=== PATIENT | male | born 1985 | race Caucasian/White ===

== ENCOUNTER 2016-03-12 13:10 | Emergency (ER) | payer OTHER | END 2016-03-12 13:20 | disposition left against medical advice (07) | LOC: UCCORT 13:10 | DX: Z53.21 Procedure and treatment not carried out due to patient leaving prior to being seen by health care provider (principal); R09.89 Other specified symptoms and signs involving the circulatory and respiratory systems ==

== ENCOUNTER 2016-03-12 14:52 | Emergency (ER) | payer OTHER ==
[2016-03-12 16:11] VITALS: BP 123/83
--- NOTE | 2016-03-12 16:25 | UC ---
Throat Pain/Nasal Mahad HPI - HPI Summary HPI Summary: 30 year old male with complaints of sinus pain and pressure, nasal congestion and sinus headache for 30 days. He was evaluated 30 days ago and has been using over the counter decongestant that did improve his symptoms for the first few days but he feels he has been getting worse since that time. He reports chills and sweats for the last 2 days. pressure from sinuses in now pushing on his upper teeth. Occasional cough that hurts his throat. Having itchy watery eyes. He denies chest pain or difficulty breathing. - History of Current Complaint Chief Complaint: UCRespiratory Stated Complaint: COUGH,HEADACHE,CONGESTION Time Seen by Provider: 03/12/16 15:54 Hx Obtained From: Patient Onset/Duration: Gradual Onset, Lasting Weeks - 4, Worse Since - for 2 days Severity: Moderate Cough: Nonproductive Associated Signs & Symptoms: Positive: Dysphagia - mild, Sinus Discomfort, Nasal Discharge, Fever - chills and sweats. he has not measured at tempurature. Negative: FB Sensation, Drooling, Wheezing, Hoarseness - Epiglottits Risk Factors Epiglottis Risk Factors: Negative - Allergies/Home Medications Allergies/Adverse Reactions: Allergies Allergy/AdvReac Type Severity Reaction Status Date / Time No Known Allergies Allergy Verified 03/12/16 16:04 Home Medications: Home Medications SUMAtriptan TAB* [Imitrex TAB*] 50 mg PO SEE INSTRUCTIONS PRN 03/12/16 [History Confirmed 03/12/16] PMH/Surg Hx/FS Hx/Imm Hx Previously Healthy: Yes Endocrine History Of: Denies: Diabetes Cardiovascular History Of: Denies: Cardiac Disorders Respiratory History Of: Denies: Asthma Neurological History Of: Reports: Migraine - Surgical History Surgical History: Yes Surgery Procedure, Year, and Place: COLONOSCOPY, GASTROSCOPE - Family History Known Family History: Positive: Cardiac Disease - father, Hypertension - both parents, Diabetes - father - Social History 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 Lives: With Family Alcohol Use: None Substance Use Type: None Smoking Status (MU): Never Smoked Tobacco Household Exposure Type: Cigarettes - Immunization History Most Recent Influenza Vaccination: STATES WITHIN THE LAST 6 MONTHS Review of Systems Constitutional: Chills - and sweats Skin: Negative Eyes: Other - itching ENT: Sore Throat, Nasal Discharge, Other - facial pain and pressure Respiratory: Cough Cardiovascular: Negative Gastrointestinal: Negative Genitourinary: Negative Motor: Negative Neurovascular: Negative Musculoskeletal: Negative Neurological: Headache Psychological: Negative All Other Systems Reviewed And Are Negative: Yes Physical Exam Triage Information Reviewed: Yes Appearance: No Pain Distress, Well-Nourished, Ill-Appearing - mild Vital Signs: Initial Vital Signs Temp 98.7 F 03/12/16 16:06 Pulse 92 03/12/16 16:06 Resp 18 03/12/16 16:06 BP 123/83 03/12/16 16:06 Pulse Ox 98 03/12/16 16:06 Vital Signs Reviewed: Yes Eyes: Positive: Conjunctiva Clear, Other: - PERRLA, Good ocular movements. Negative: Discharge ENT: Positive: Pharyngeal erythema - mild, Nasal congestion, Nasal drainage - white, TMs normal, Other: - Bilateral Maxillary sinus pain and pressure with palpation Neck: Positive: Supple, Nontender, No Lymphadenopathy Respiratory: Positive: Lungs clear, Normal breath sounds Cardiovascular: Positive: RRR, No Murmur Musculoskeletal: Positive: Strength Intact, ROM Intact Neurological: Positive: Alert, Muscle Tone Normal Psychological: Positive: Age Appropriate Behavior - pleasant and cooperative Skin: Negative: rashes, breakdown Throat Pain/Nasal Course/Dx - Differential Dx/Diagnosis Differential Diagnosis/HQI/PQRI: Pharyngitis, Sinusitis, URI Provider Diagnoses: Sinusitis Discharge - Discharge Plan Condition: Stable Disposition: HOME Prescriptions: Amoxicillin/Clavulanate TAB* [Augmentin TAB 875*] 875 mg PO BID #20 tab Fluticasone NASAL SPRAY 50MCG* [Flonase NASAL SPRAY 50MCG*] 1 spray BOTH NARES DAILY #1 btl Patient Education Materials: Sinusitis (ED)
== END 2016-03-12 16:44 | disposition home or self-care (01) ==
LOC: UCCORT 14:52
DX: J32.9 Chronic sinusitis, unspecified (principal); G43.909 Migraine, unspecified, not intractable, without status migrainosus
CPT/HCPCS: 99211; G0463

== ENCOUNTER 2016-07-23 16:03 | Emergency (ER) | payer OTHER ==
[2016-07-23 17:15] VITALS: BP 133/81
[2016-07-23] MEDS ORDERED: Albuterol HFA INHALER* 8 gm MDI INH ONE (17:23)
[2016-07-23] MEDS ORDERED: Amoxicillin CAP* 500 MG PO ONE (17:23)
--- NOTE | 2016-07-23 17:26 | UC ---
Respiratory Complaint HPI - History of Current Complaint Chief Complaint: UCRespiratory Stated Complaint: COUGH Time Seen by Provider: 07/23/16 17:08 Hx Obtained From: Patient Onset/Duration: Gradual Onset - for one week with cough now productive of green / brown sputum, Lasting Weeks - 1, Worse Since - last couple days Severity Initially: Mild Severity Currently: Moderate Character: Cough: Productive Aggravating Factors: Deep Breaths, Recumbent Position - worse at night Alleviating Factors: Nothing Associated Signs And Symptoms: Positive: Dyspnea, Wheezing, URI, Nasal Congestion Related History: Seasonal Allergies - Risk Factors Pulmonary Embolism Risk Factors: Negative Cardiac Risk Factors: Family History Pseudomonas Risk Factors: Negative - Allergies/Home Medications Allergies/Adverse Reactions: Allergies Allergy/AdvReac Type Severity Reaction Status Date / Time No Known Allergies Allergy Verified 07/23/16 17:08 PMH/Surg Hx/FS Hx/Imm Hx Endocrine History Of: Denies: Diabetes Cardiovascular History Of: Denies: Cardiac Disorders Respiratory History Of: Reports: Asthma - As childhood Neurological History Of: Reports: Migraine - Surgical History Surgical History: Yes Surgery Procedure, Year, and Place: COLONOSCOPY, GASTROSCOPE - Family History Known Family History: Positive: Cardiac Disease - father, Hypertension - both parents, Diabetes - father - Social History Occupation: Employed Full-time Lives: With Family Alcohol Use: None Substance Use Type: None Smoking Status (MU): Never Smoked Tobacco Household Exposure Type: Cigarettes - Immunization History Most Recent Influenza Vaccination: NONEU Most Recent Tetanus Shot: UTD Most Recent Pneumonia Vaccination: NONE Review of Systems Constitutional: Fever ENT: Sore Throat, Ear Ache Respiratory: Shortness Of Breath, Cough All Other Systems Reviewed And Are Negative: Yes Physical Exam Triage Information Reviewed: Yes Appearance: No Pain Distress, Well-Nourished, Ill-Appearing Vital Signs: Initial Vital Signs Temp 97.8 F 07/23/16 17:09 Pulse 89 07/23/16 17:09 Resp 18 07/23/16 17:09 BP 133/81 07/23/16 17:09 Pulse Ox 98 07/23/16 17:09 Vital Signs Reviewed: Yes Eyes: Positive: Conjunctiva Inflamed ENT: Positive: Pharyngeal erythema - on the soft palate, TMs normal - AD, TM bulging - , TM red - Neck exam: Normal Respiratory: Positive: Lungs clear Cardiovascular Exam: Normal Abdominal Exam: Normal Musculoskeletal Exam: Normal Neurological Exam: Normal Psychological Exam: Normal Skin Exam: Normal UC Diagnostic Evaluation - Laboratory O2 Sat by Pulse Oximetry: 98 Respiratory Course/Dx - Differential Dx/Diagnosis Differential Diagnosis/HQI/PQRI: Asthma, Lower Resp Infection, Sinusitis Provider Diagnoses: Acute URI. Acute bronchospasm. Acute left supporative otitis media Discharge - Discharge Plan Condition: Stable Disposition: HOME Prescriptions: Amoxicillin (*) [Amoxicillin 875 MG (*)] 875 mg PO BID #20 tab predniSONE TAB* [Deltasone TAB*] 20 mg PO DAILY #18 tab Patient Education Materials: Upper Respiratory Infection (ED), Wheezing (ED), Prednisone (By mouth), Otitis Media (ED), Amoxicillin (By mouth)
== END 2016-07-23 17:40 | disposition home or self-care (01) ==
LOC: UCCORT 16:03
DX: J06.9 Acute upper respiratory infection, unspecified (principal); J98.01 Acute bronchospasm; H66.002 Acute suppurative otitis media without spontaneous rupture of ear drum, left ear; G43.909 Migraine, unspecified, not intractable, without status migrainosus; Z77.22 Contact with and (suspected) exposure to environmental tobacco smoke (acute) (chronic)
CPT/HCPCS: 99212; A9270-GY; G0463

== ENCOUNTER 2016-11-11 09:26 | Emergency (ER) | payer MEDICAID, OTHER ==
[2016-11-11 10:18] VITALS: BP 148/70
--- NOTE | 2016-11-11 10:36 | UC ---
UC General HPI - History of Current Complaint Chief Complaint: UCGeneralIllness Stated Complaint: NAUSEA Time Seen by Provider: 11/11/16 10:24 - Allergy/Home Medications Allergies/Adverse Reactions: Allergies Allergy/AdvReac Type Severity Reaction Status Date / Time No Known Allergies Allergy Verified 11/11/16 10:08 PMH/Surg Hx/FS Hx/Imm Hx - Surgical History Surgical History: Yes Surgery Procedure, Year, and Place: COLONOSCOPY, GASTROSCOPE - Family History Known Family History: Positive: Cardiac Disease - father, Hypertension - both parents, Diabetes - father - Social History Alcohol Use: None Substance Use Type: None Smoking Status (MU): Never Smoked Tobacco Household Exposure Type: Cigarettes - Immunization History Most Recent Influenza Vaccination: 2015 Most Recent Tetanus Shot: UTD Most Recent Pneumonia Vaccination: NONE Physical Exam Vital Signs: Initial Vital Signs Temp 99.3 F 11/11/16 10:09 Pulse 90 11/11/16 10:09 Resp 18 11/11/16 10:09 BP 148/70 11/11/16 10:09 Pulse Ox 98 11/11/16 10:09
[2016-11-11] MEDS ORDERED: Ondansetron ODT TAB* 4 MG PO ONE ×2 (10:42)
[2016-11-11] MEDS ORDERED: Amitriptyline TAB* 50 MG PO ONE ×2 (10:43)
--- NOTE | 2016-11-11 10:46 | UC ---
UC General HPI - HPI Summary HPI Summary: 31 y/o male presents to the urgent care c/o cough, fever/chills, headache since yesterday evening at 1800. Pt reports he went to [facility] ER at 2300 yesterday, they did several blood work and tests and was d/c home w/ Dx of Viral illness. Did not Rx him anything. He had an episode of vomiting yesterday. Today his CROWE is 7/10 with nausea. He has PMHX of Migraine CROWE and he takes Sumatriptan PO 50 mg BID . Pt is drinking well, but has not eating anything this morning. Pt denies SOB,chest pain, diarrhea. Urinary symptoms, abdominal pain. - History of Current Complaint Chief Complaint: UCGeneralIllness Stated Complaint: NAUSEA Time Seen by Provider: 11/11/16 10:24 Hx Obtained From: Patient Onset/Duration: Gradual Onset, Lasting Hours, Still Present Onset Severity: Moderate Current Severity: Moderate Pain Intensity: 7 - Headache Pain Location at: frontal and temporal Character: throbing Associated Signs & Symptoms: Positive: Fever - sunjective at home, Headache, Vomiting - yesterday one episode - Allergy/Home Medications Allergies/Adverse Reactions: Allergies Allergy/AdvReac Type Severity Reaction Status Date / Time No Known Allergies Allergy Verified 11/11/16 10:08 PMH/Surg Hx/FS Hx/Imm Hx Previously Healthy: Yes Neurological History: Migraine Psychological History: Anxiety - Surgical History Surgical History: Yes Surgery Procedure, Year, and Place: COLONOSCOPY, GASTROSCOPE - Family History Known Family History: Positive: Cardiac Disease - father, Hypertension - both parents, Diabetes - father - Social History Alcohol Use: None Substance Use Type: None Smoking Status (MU): Never Smoked Tobacco Household Exposure Type: Cigarettes - Immunization History Most Recent Influenza Vaccination: 2016 Most Recent Tetanus Shot: UTD Most Recent Pneumonia Vaccination: NONE Review of Systems Constitutional: Fever, Chills Skin: Negative Eyes: Negative ENT: Negative Respiratory: Cough - mild productive Cardiovascular: Negative Gastrointestinal: Vomiting - 1 episode yesterday, Nausea Genitourinary: Negative Motor: Negative Neurovascular: Negative Musculoskeletal: Negative Neurological: Headache - migraine Psychological: Negative All Other Systems Reviewed And Are Negative: Yes Physical Exam Triage Information Reviewed: Yes Appearance: Well-Appearing, No Pain Distress, Well-Nourished, Thin Vital Signs: Initial Vital Signs Temp 99.3 F 11/11/16 10:09 Pulse 90 11/11/16 10:09 Resp 18 11/11/16 10:09 BP 148/70 11/11/16 10:09 Pulse Ox 98 11/11/16 10:09 Vital Signs Reviewed: Yes Eye Exam: Normal Eyes: Positive: Conjunctiva Clear - PERRLA, EOMI ENT Exam: Normal ENT: Positive: Normal ENT inspection, Hearing grossly normal, Pharynx normal, TMs normal, Other: - no sinus tenderness Dental Exam: Normal Neck exam: Normal Neck: Positive: Supple, Nontender, No Lymphadenopathy Respiratory Exam: Normal Respiratory: Positive: Chest non-tender, Lungs clear, Normal breath sounds, No respiratory distress Cardiovascular Exam: Normal Cardiovascular: Positive: RRR, No Murmur, Pulses Normal Abdominal Exam: Normal Abdomen Description: Positive: Nontender, No Organomegaly, Soft, Guarding. Negative: CVA Tenderness (R), CVA Tenderness (L) Bowel Sounds: Positive: Present Musculoskeletal Exam: Normal Musculoskeletal: Positive: Strength Intact, ROM Intact, No Edema, Other: - mild tenderness B/L shoulder. no swelling or erythema observed. FROM of shoulders Neurological Exam: Normal Psychological Exam: Normal Skin Exam: Normal Course/Dx - Course Course Of Treatment: . 31 y/o male presents to the urgent care c/o cough, fever /chills, headache since yesterday evening at 1800. Pt reports he went to [facility] ER at 2300 yesterday, they did several blood work and tests and was d/ c home w/ Dx of Viral illness. Did not Rx him anything. He had an episode of vomiting yesterday. Today his CROWE is 7/10 with nausea. He has PMHX of Migraine CROWE and he takes Sumatriptan PO 50 mg BID . Pt is drinking well, but has not eating anything this morning. Pt denies SOB,chest pain, diarrhea. Urinary symptoms, abdominal pain. Hx obtained. PE WNL. Pt presenting with a Migraine CROWE , N/V, and mild productive cough, Lungs Clear B/L. Pt given at the clinic Sumatriptan SQ inj. and Zofran for nausea. However PT had an episode of vomiting after taking Zofran PO. Pt given Compazine 10mg PO to alleviate for vomiting. Pt observed for 20 min and Pt CROWE and N/V improve. Pt Rx Compazine PO for N/V and Tessalon PO tab to alleviate Cough. Pt advised to continue taking the Sumatriptan for Migraine CROWE. Also advised to increase fluid intake with gatorade and eat well and rest. Pt BP mildly elevated today w/o Hx of HTN. Advised to decrease salt in his diet, monitor BP at home if if continues to be elevated to f/u with his PCP. If not improvement of symptoms to return to the urgent care or f/u with his PCP for further evaluation and treatment. Pt understood and agreed and left the clinic anbulating. - Differential Dx - Multi-Symptom Differential Diagnoses: Other - URI, bronchitis. Migraine CROWE, Pharyngitis, Viral illness, common cold. Provider Diagnoses: 1- Acute Migraine Headache. 2- Nausea and vomiting. 3- Common cold. 4- Elevated BP w/o Hx of HTN - Physician Notifications Discussed Patient Care With: Braeden Canales - Dr canales agreed with Pt care and treatment Discharge - Discharge Plan Condition: Stable Disposition: HOME Prescriptions: Benzonatate CAP* [Tessalon 100 MG CAP*] 100 mg PO TID #15 cap Prochlorperazine TAB* [Compazine Tab*] 10 mg PO Q8H PRN #9 tab PRN Reason: Vomiting Patient Education Materials: Migraine Headache (ED), Cold Symptoms (ED), Low Sodium Diet (ED) Referrals: Nel Machuca PA [Primary Care Provider] - 3 Days Additional Instructions: 1- Please continue taking the Sumatriptan alleviate symptoms of migraine Headache. The Compazine to alleviate symptoms of Nausea and vomiting. 2- Take ibuprofen q6-8hrs prn if your develop any fever. 3- Please hydrate yourself well and eat well and rest 4-If symptoms do not improve or worsen please return to the urgent care or f/u with your PCP for further evaluation and treatment. 5- Your BP today is elevated, please decrease salt in your diet, monitor your BP , if it continues to be elevated please f/y with your PCP for further management.
[2016-11-11] MEDS ORDERED: SUMAtriptan TAB* 50 MG PO ONE ×2 (10:47)
[2016-11-11] MEDS ORDERED: SUMAtriptan SQ* 6 MG/0.5 ML VIAL SUBCUT ONE ×2 (10:51)
[2016-11-11] MEDS ORDERED: Prochlorperazine TAB* 10 MG PO ONE ×2 (11:13)
[2016-11-11] MEDS ORDERED: Prochlorperazine TAB* 5 MG ONE ×2 (11:21)
== END 2016-11-11 11:55 | disposition home or self-care (01) ==
LOC: UCCORT 09:26
DX: G43.909 Migraine, unspecified, not intractable, without status migrainosus (principal); F41.9 Anxiety disorder, unspecified; R11.2 Nausea with vomiting, unspecified; J00 Acute nasopharyngitis [common cold]; R03.0 Elevated blood-pressure reading, without diagnosis of hypertension
CPT/HCPCS: 96372; 99212; A9270-GY; G0463; J3030; Q0164

== ENCOUNTER 2017-02-02 17:31 | Emergency (ER) | payer SELFPAY ==
--- NOTE | 2017-02-02 18:00 | UC ---
Back Pain HPI - HPI Summary HPI Summary: 31 YEAR OLD MALE PRESENTS WITH RIGHT UPPER THORACIC MUSCLE SPASM. - History of Current Complaint Stated Complaint: BACK PAIN Time Seen by Provider: 02/02/17 17:59 Onset/Duration: Sudden Onset Timing: Constant Severity Initially: Moderate Severity Currently: Moderate - Allergies/Home Medications Allergies/Adverse Reactions: Allergies Allergy/AdvReac Type Severity Reaction Status Date / Time No Known Allergies Allergy Verified 02/02/17 18:03 PMH/Surg Hx/FS Hx/Imm Hx Previously Healthy: Yes - Surgical History Surgical History: Yes Surgery Procedure, Year, and Place: COLONOSCOPY, GASTROSCOPE - Family History Known Family History: Positive: Cardiac Disease - father, Hypertension - both parents, Diabetes - father - Social History Alcohol Use: None Substance Use Type: None Smoking Status (MU): Never Smoked Tobacco Household Exposure Type: Cigarettes - Immunization History Most Recent Influenza Vaccination: 2015 Most Recent Tetanus Shot: UTD Most Recent Pneumonia Vaccination: NONE Review of Systems Constitutional: Negative Skin: Negative Eyes: Negative ENT: Negative Respiratory: Negative Cardiovascular: Negative Gastrointestinal: Negative Genitourinary: Negative Motor: Negative Neurovascular: Negative Musculoskeletal: Other: - RIGHT UPPER THORACIC MUSCLE SPASM Neurological: Negative Psychological: Negative All Other Systems Reviewed And Are Negative: Yes Physical Exam Triage Information Reviewed: Yes Vital Signs Reviewed: Yes Eye Exam: Normal ENT Exam: Normal Dental Exam: Normal Neck exam: Normal Neck: Positive: 1 Respiratory Exam: Normal Cardiovascular Exam: Normal Abdominal Exam: Normal Musculoskeletal: Positive: Other: - RIGHT UPPER THORACIC MUSCLE SPASM Neurological Exam: Normal Psychological Exam: Normal Skin Exam: Normal Back Pain Course/Dx - Differential Dx/Diagnosis Provider Diagnoses: RIGHT UPPER THORACIC SPASM Discharge - Discharge Plan Condition: Stable Disposition: HOME Prescriptions: Meloxicam(NF) [Mobic(NF)] 7.5 mg PO BID #30 tab Methocarbamol TAB* [Robaxin 500 MG TAB*] 500 mg PO TID PRN #30 tab PRN Reason: Spasms - Back Patient Education Materials: Low Back Strain (ED) Forms: *Work Release Referrals: Nel Machuca PA [Primary Care Provider] - Yair Calabrese [Physical Therapist] -
[2017-02-02 18:02] VITALS: BP 141/93
== END 2017-02-02 18:17 | disposition home or self-care (01) ==
LOC: UCCORT 17:31
DX: M62.830 Muscle spasm of back (principal); Z77.22 Contact with and (suspected) exposure to environmental tobacco smoke (acute) (chronic)
CPT/HCPCS: 99212; G0463

== ENCOUNTER 2017-08-18 07:35 | Emergency (ER) | payer OTHER ==
[2017-08-18 07:53] VITALS: BP 134/90
--- NOTE | 2017-08-18 08:01 | UC ---
Respiratory Complaint HPI - HPI Summary HPI Summary: Patient presents with 5 days progressive congestion settlements chest. Patient with productive Brents cough since yesterday. Patient denies nausea vomiting. Patient with fatigue. Patient reports tactile temperatures. Reports with decreased appetite. Patient does not feel short of breath except for "coughing " Pt is exposed to secondhand smoke at home. With a history of asthma as a child. No recent prednisone or MDI. She has used [id number] cough medicine without relief. Patient on no allergy medication. Reports sick contacts at work. 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 today Patient's medications reviewed this visit - History of Current Complaint Chief Complaint: UCGeneralIllness Stated Complaint: RESPIRATORY Time Seen by Provider: 08/18/17 07:54 Hx Obtained From: Patient Severity Initially: Moderate Pain Intensity: 4 Pain Scale Used: 0-10 Numeric Character: Cough: Productive - Brown sputum - Allergies/Home Medications Allergies/Adverse Reactions: Allergies Allergy/AdvReac Type Severity Reaction Status Date / Time No Known Allergies Allergy Verified 08/18/17 07:52 PMH/Surg Hx/FS Hx/Imm Hx Previously Healthy: Yes Respiratory History: Asthma - Surgical History Surgical History: Yes Surgery Procedure, Year, and Place: COLONOSCOPY, GASTROSCOPE - Family History Known Family History: Positive: Cardiac Disease - father, Hypertension - both parents, Diabetes - father - Social History Occupation: Employed Full-time Lives: With Family Alcohol Use: None Substance Use Type: None Smoking Status (MU): Never Smoked Tobacco Household Exposure Type: Cigarettes - Immunization History Most Recent Influenza Vaccination: 2016 Most Recent Tetanus Shot: UTD Most Recent Pneumonia Vaccination: NONE Review of Systems Constitutional: Fever - Tactile, Fatigue Respiratory: Cough Cardiovascular: Negative All Other Systems Reviewed And Are Negative: Yes Physical Exam - Summary Physical Exam Summary: Vital Signs Reviewed: Yes A+Ox3, no distress Eyes: Conjunctiva Clear, RAJIV. EOM intact and full ENT: Hearing grossly normal TM x 2 clear, turbinates inflammed and boggy + PND mmoist, uvula midline, no exudate, no erythema Neck: Positive: Supple Respiratory: P No respiratory distress, No accessory muscle use + BS throughout scattered wheeze, no rhonci, no retractions Cardiovascular: RRR nl s1, s2 no m/r CBT <2 sec abd soft + BS nt/nd no guarding, no distension Musculoskeletal Exam: GORDON x 4 without difficulty Strength Intact, ROM Intact Neurological: Positive: Alert, + sensation throughout Psychological: Positive: Normal Response To Family Skin: Positive: no rash, no ecchymosis Triage Information Reviewed: Yes Vital Signs: Initial Vital Signs Temp 98.0 F 08/18/17 07:49 Pulse 73 08/18/17 07:49 Resp 16 08/18/17 07:49 BP 134/90 08/18/17 07:49 Pulse Ox 100 08/18/17 07:49 Diagnostic Evaluation - Laboratory O2 Sat by Pulse Oximetry: 100 Respiratory Course/Dx - Course Course Of Treatment: Patient with progressive chest congestion and cough. Patient reports brown sputum. Patient was scattered wheeze. Patient with tactile temperatures and fatigue. Exam vital signs stable. Patient was scattered wheeze and intermittent cough. 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 Will prescribe amoxicillin, albuterol MDI. secretion precaution. Recommend allergy medication. Return precautions. Work note - Differential Dx/Diagnosis Provider Diagnoses: Bronchitis Discharge - Sign-Out/Discharge Documenting (check all that apply): Discharge/Admit/Transfer - Discharge Plan Condition: Stable Disposition: HOME Prescriptions: Albuterol HFA INHALER* [Ventolin HFA Inhaler*] 1 puff INH Q4H PRN #1 mdi PRN Reason: wheeze Amoxicillin 500 mg PO BID #20 capsule Patient Education Materials: Acute Bronchitis (ED) Forms: *Work Release Referrals: Nilsa Jackson MD [Primary Care Provider] - Additional Instructions: -Stay well hydrated, avoid excess caffeine and all alcohol -Take antibiotics exactly as prescribed until gone -Use your albuterol puffer - 2 puffs ever 4-6 hours for the next 2 days - then as needed -it is recommended you take allergy medication such as Claritin, Leonela, Zytrec -These infections are spread by oral secretions. Do not share eating or drinking utensils. Frequent hand washing is important. Clean items that may get your secretions on them such as cell phones, ipads, computer mouse, television remotes. Once you have been on antbiotics for 2 days, change your pillowcase and your toothbrush -Contact your doctor to arrange a follow-up appointment this week. Call your doctor, return here or go to the emergency department with any questions or concerns - Billing Disposition and Condition Condition: STABLE Disposition: Home
== END 2017-08-18 08:14 | disposition home or self-care (01) ==
LOC: UCCORT 07:35
DX: J40 Bronchitis, not specified as acute or chronic (principal); J45.909 Unspecified asthma, uncomplicated; Z77.22 Contact with and (suspected) exposure to environmental tobacco smoke (acute) (chronic); Z77.098 Contact with and (suspected) exposure to other hazardous, chiefly nonmedicinal, chemicals
CPT/HCPCS: 99212; G0463

== ENCOUNTER 2018-07-18 20:29 | Emergency (ER) | payer OTHER ==
[2018-07-18 20:53] VITALS: BP 132/56
--- NOTE | 2018-07-18 21:11 | UC ---
Laceration HPI - HPI Summary HPI Summary: Cut R thumb today while working on a car. It started to bleed but he held tissue to it. Stopped bleeding. Some pain. Denies numbness. - History Of Current Complaint Chief Complaint: UCLaceration Stated Complaint: R THUMB CUT (WC) Time Seen by Provider: 07/18/18 20:58 Hx Obtained From: Patient Mechanism Of Injury: Sharp Trauma Onset/Duration: Sudden Onset Pain Intensity: 5 Pain Scale Used: 0-10 Numeric Aggravating Factors: Nothing - Allergies/Home Medications Allergies/Adverse Reactions: Allergies Allergy/AdvReac Type Severity Reaction Status Date / Time No Known Allergies Allergy Verified 07/18/18 20:53 Home Medications: Home Medications Propranolol HCl 80 mg PO DAILY 07/18/18 [History Confirmed 07/18/18] PMH/Surg Hx/FS Hx/Imm Hx Respiratory History: Asthma - Surgical History Surgical History: Yes Surgery Procedure, Year, and Place: COLONOSCOPY, GASTROSCOPE - Family History Known Family History: Positive: Cardiac Disease - father, Hypertension - both parents, Diabetes - father - Social History Alcohol Use: None Substance Use Type: None Smoking Status (MU): Never Smoked Tobacco Household Exposure Type: Cigarettes - Immunization History Most Recent Influenza Vaccination: 2016 Most Recent Tetanus Shot: 2013 Most Recent Pneumonia Vaccination: NONE Review of Systems All Other Systems Reviewed And Are Negative: Yes Constitutional: Positive: Negative Skin: Negative: Bruising Musculoskeletal: Negative: Decreased ROM Neurological: Negative: Weakness, Paresthesia Physical Exam Triage Information Reviewed: Yes Appearance: Well-Appearing Vital Signs: Initial Vital Signs Temp 99 F 07/18/18 20:49 Pulse 73 07/18/18 20:49 Resp 16 07/18/18 20:49 BP 132/56 07/18/18 20:49 Pulse Ox 99 07/18/18 20:49 Vital Signs Reviewed: Yes Musculoskeletal: Positive: Strength Intact - R thumb, No Edema - R thumb Skin: Positive: Other - Curved approx 1 in. laceration w/ no active bleeding. area cleaned and dermabond glue used Laceration Course/Dx - Course/Dx Course Of Treatment: R thumb curved laceration after working on a car today. NO active bleeding. Area cleaned and derma glue used. Neurovascularly intact. Tetanus vaccine w/in the past 5 yrs per pt. - Differential Dx - Laceration/Wound Differental Diagnoses: Abrasion, Laceration, Suture Removal - Diagnosis Provider Diagnosis: Laceration Discharge - Sign-Out/Discharge Documenting (check all that apply): Patient Departure All imaging exams completed and their final reports reviewed: No Studies - Discharge Plan Condition: Good Disposition: HOME Patient Education Materials: Laceration (ED) Referrals: Nilsa Jackson MD [Primary Care Provider] - Additional Instructions: Please keep area clean and follow up with your primary care if it begins to get red and swollen. - Billing Disposition and Condition Condition: GOOD Disposition: Home
== END 2018-07-18 21:13 | disposition home or self-care (01) ==
LOC: UCCORT 20:29
DX: S61.011A Laceration without foreign body of right thumb without damage to nail, initial encounter (principal); W26.9XXA Contact with unspecified sharp object(s), initial encounter; Y93.H9 Activity, other involving exterior property and land maintenance, building and construction; Y92.014 Private driveway to single-family (private) house as the place of occurrence of the external cause; J45.909 Unspecified asthma, uncomplicated
CPT/HCPCS: 99212; G0463

== ENCOUNTER 2018-11-26 17:48 | Emergency (ER) | payer OTHER ==
[2018-11-26 18:08] VITALS: BP 129/78
[2018-11-26 19:38] LABS: Influenza A Molecular NEGATIVE (Negative); Influenza B Molecular NEGATIVE (Negative)
--- NOTE | 2018-11-26 19:40 | UC ---
FLU HPI - HPI Summary HPI Summary: 33-year-old male presents with onset of fatigue, general malaise, body aches, headache, nasal congestion, runny nose, and an occasionally productive cough the evening. Symptoms associated with some chills but no known fever. Reports some chest discomfort with coughing. Denies ear pain, sore throat, shortness of breath, abdominal pain, nausea, vomiting, or diarrhea. - History of Current Complaint Chief Complaint: UCRespiratory Stated Complaint: COUGH/CONGESTION/FATIGUE Hx Obtained From: Patient Pain Intensity: 0 - Allergy/Home Medications Allergies/Adverse Reactions: Allergies Allergy/AdvReac Type Severity Reaction Status Date / Time No Known Allergies Allergy Verified 11/26/18 18:04 Home Medications: Home Medications Oxybutynin Chloride [Ditropan Xl] 10 mg PO BID 11/26/18 [History Confirmed 11/26] PMH/Surg Hx/FS Hx/Imm Hx Other GI/ History: OAB Neurological History: Migraine - Surgical History Surgical History: Yes Surgery Procedure, Year, and Place: COLONOSCOPY, GASTROSCOPE - Family History Known Family History: Positive: Cardiac Disease - father, Hypertension - both parents, Diabetes - father - Social History Occupation: Employed Full-time Lives: With Family Alcohol Use: None Substance Use Type: None Smoking Status (MU): Never Smoked Tobacco Household Exposure Type: Cigarettes - Immunization History Most Recent Influenza Vaccination: 2016 Most Recent Tetanus Shot: 2013 Most Recent Pneumonia Vaccination: NONE Review of Systems All Other Systems Reviewed And Are Negative: Yes Constitutional: Positive: Chills, Fatigue. Negative: Fever Skin: Negative: Rash Eyes: Negative: Drainage, Eye Redness ENT: Positive: Nasal Discharge, Sinus Congestion, Sinus Pain/Tenderness. Negative: Sore Throat, Ear Ache Respiratory: Positive: Cough. Negative: Shortness Of Breath Cardiovascular: Negative: Palpitations Gastrointestinal: Negative: Abdominal Pain, Vomiting, Diarrhea, Nausea Genitourinary: Positive: Negative Musculoskeletal: Positive: Myalgia Neurological: Positive: Headache Is Patient Immunocompromised?: No Physical Exam - Summary Physical Exam Summary: GENERAL APPEARANCE: Well developed, well nourished, alert and cooperative, and appears to be in no acute distress. EYES: Conjunctiva clear. No drainage. EARS: External auditory canals and tympanic membranes clear, hearing grossly intact. NOSE: Mild-moderate nasal congestion with clear nasal discharge. THROAT: Pharynx normal. No tonsilar inflammation, swelling, exudate, or lesions. Uvula midline. NECK: Neck supple, non-tender without lymphadenopathy. CARDIAC: Normal S1 and S2. No S3, S4 or murmurs. Rhythm is regular. There is no peripheral edema, cyanosis or pallor. Extremities are warm and well perfused. Capillary refill is less than 2 seconds. Peripheral pulses intact. LUNGS: Clear to auscultation without rales, rhonchi, wheezing or diminished breath sounds. Dry, non-productive cough. ABDOMEN: Positive bowel sounds. Soft, nondistended, nontender. No guarding or rebound. No masses or hepatosplenomegally. MUSKULOSKELETAL: ROM intact to all extremities. No joint erythema or tenderness. Normal muscular development. Normal gait. SKIN: Skin normal color, texture and turgor with no lesions or eruptions. Triage Information Reviewed: Yes Vital Signs: Initial Vital Signs Temp 99.3 F 11/26/18 18:02 Pulse 80 11/26/18 18:02 Resp 18 11/26/18 18:02 BP 129/78 11/26/18 18:02 Pulse Ox 97 11/26/18 18:02 Vital Signs Reviewed: Yes Flu Course/Dx - Course Course Of Treatment: 33-year-old male presents with onset of fatigue, general malaise, body aches, headache, nasal congestion, runny nose, and an occasionally productive cough the evening. Symptoms associated with some chills but no known fever. Reports some chest discomfort with coughing. Denies ear pain, sore throat, shortness of breath, abdominal pain, nausea, vomiting, or diarrhea. Afebrile. Vital signs stable. Patient had oxjw-wi-ibcnliam nasal congestion with clear nasal discharge, normal pharynx without tonsillar swelling or exudate, no cervical lymphadenopathy, clear bilateral breath sounds, dry nonproductive cough, and otherwise unremarkable exam. Rapid flu test was negative. Recommending symptomatic treatment for a viral upper respiratory infection. He is to follow- up with his primary care provider in 5-7 days if symptoms are not improving. Anticipatory guidance warning symptoms were reviewed with the patient. Verbalized understanding and agrees with plan of care. - Differential Dx/Diagnosis Differential Diagnosis/HQI/PQRI: Bronchitis, Influenza, Pneumonia, Upper Respiratory Infection Provider Diagnosis: Viral URI with cough Discharge ED - Sign-Out/Discharge Documenting (check all that apply): Patient Departure All imaging exams completed and their final reports reviewed: No Studies - Discharge Plan Condition: Stable Disposition: HOME Prescriptions: Benzonatate CAP* [Tessalon 100 MG CAP*] 100 mg PO TID PRN #[id number] cap PRN Reason: Cough Patient Education Materials: Upper Respiratory Infection (ED) Referrals: Nilsa Jackson MD [Primary Care Provider] - 5 Days Additional Instructions: The rapid flu test performed in the clinic today was negative. Your history and exam are consistent with a viral upper respiratory infection. Viral infections do not respond to antibiotics and are limited to the treatment of symptoms. Viral infections typically run their course in 7-10 days. Drink plenty of fluids to avoid dehydration especially if you are running any fever. Use an [id number] decongestant such as Sudafed according to directions to help with the congestion. Take Tessalon Perles 1 capsule every 8 hours as needed for cough. Take over the counter acetaminophen (Tylenol) or ibuprofen (Advil, Motrin) according to directions as needed for pain or fever. Use salt water gargles several times a day if you have a sore throat. You may also use Chloraseptic spray or Cepacol lonzenges according to directions which contain a numbing medication and can provide some temporary relief from your sore throat. Follow up with your primary care provider in 5-7 days if symptoms persist. Seek immediate medical attention in the emergency room if you have fever greater than 100.5 F despite taking acetaminophen or ibuprofen, have chest pain , difficulty breathing, are unable to swallow, or have any worsening of symptoms. - Billing Disposition and Condition Condition: STABLE Disposition: Home - Attestation Statements Provider Attestation: Per institutional requirements, I have reviewed the chart, however, I was not consulted specifically or made aware of this patient by the midlevel provider. I did not personally evaluate, interact with , or disposition this patient.
== END 2018-11-26 19:49 | disposition home or self-care (01) ==
LOC: UCCORT 17:48
DX: J06.9 Acute upper respiratory infection, unspecified (principal); Z77.22 Contact with and (suspected) exposure to environmental tobacco smoke (acute) (chronic)
CPT/HCPCS: 99212; G0463

== ENCOUNTER 2019-05-02 12:07 | Emergency (ER) | payer MEDICAID, OTHER ==
--- NOTE | 2019-05-02 12:26 | UC ---
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 Today has increased pain and cramping in the right abdomen, which has progressed and is distracting him from work. No blood with stool passage, no mucous, no hx of colitis. No family members ill, no travel, no intake of unpasteurized dairy products. He was able to sleep last night, and has not been getting up in the night with pain. He has no fever, nausea or vomiting. He ate a bagel this morning and has had coffee. - History of Current Complaint Stated Complaint: STOMACH/LOWER BACK PAIN CHILLS Time Seen by Provider: 05/02/19 12:16 Hx Obtained From: Patient Onset/Duration: Gradual Onset, Lasting Days - 3 Timing: Constant Severity Initially: Moderate Severity Currently: Moderate Pain Intensity: 6 Location: Discrete At: RLQ Radiates: No Character: Cramping Aggravating Factor(s): Movement Alleviating Factor(s): Rest, Other - relieves with stool passage. Associated Signs And Symptoms: Positive: Back Pain - has ache in the sacral area , Decreased Appetite, Diarrhea. Negative: Diaphoresis, Fever, Urinary Symptoms , Vomiting - Allergies/Home Medications Allergies/Adverse Reactions: Allergies Allergy/AdvReac Type Severity Reaction Status Date / Time No Known Allergies Allergy Verified 05/02/19 12:17 Home Medications: Home Medications busPIRone TAB* [Buspar TAB*] 300 mg PO DAILY 02/10/16 [History Confirmed ] SUMAtriptan TAB* [Imitrex TAB*] 50 mg PO SEE INSTRUCTIONS PRN 03/12/16 [History Confirmed 05/02/19] Propranolol HCl 80 mg PO DAILY 07/18/18 [History Confirmed 05/02/19] PMH/Surg Hx/FS Hx/Imm Hx Previously Healthy: Yes Neurological History: Migraine Psychological History: Anxiety - Surgical History Surgical History: Yes Surgery Procedure, Year, and Place: COLONOSCOPY, GASTROSCOPE - Family History Known Family History: Positive: Cardiac Disease - father, Hypertension - both parents, Diabetes - father - Social History Occupation: Employed Full-time Lives: With Family Alcohol Use: None Substance Use Type: None Smoking Status (MU): Never Smoked Tobacco Household Exposure Type: Cigarettes - Immunization History Most Recent Influenza Vaccination: 2016 Most Recent Tetanus Shot: 2013 Most Recent Pneumonia Vaccination: NONE Review of Systems All Other Systems Reviewed And Are Negative: Yes Constitutional: Positive: Fatigue Skin: Positive: Negative Eyes: Positive: Negative ENT: Positive: Negative Respiratory: Positive: Negative Cardiovascular: Positive: Negative Gastrointestinal: Positive: Abdominal Pain, Diarrhea. Negative: Vomiting, Nausea Genitourinary: Positive: Negative Motor: Positive: Negative Neurovascular: Positive: Negative Musculoskeletal: Positive: Negative Neurological/Mental Status: Positive: Negative Psychological: Positive: Negative Is Patient Immunocompromised?: No Physical Exam Triage Information Reviewed: Yes Appearance: Pain Distress - mild to moderate Vital Signs: Initial Vital Signs Temp 98.6 F 05/02/19 12:18 Pulse 67 05/02/19 12:18 Resp 16 05/02/19 12:18 BP 133/91 05/02/19 12:18 Pulse Ox 99 05/02/19 12:18 Eye Exam: Normal ENT: Positive: Pharynx normal Neck: Positive: Supple, Nontender, No Lymphadenopathy Respiratory: Positive: Lungs clear, Normal breath sounds Cardiovascular: Positive: RRR, No Murmur Abdomen Description: Positive: No Organomegaly, Soft, Guarding - voluntary guarding with palpation of the RLQ, without peritoneal signs.. Negative: CVA Tenderness (R), CVA Tenderness (L), Distended, Hepatomegaly, Peritoneal Signs, Splenomegaly Bowel Sounds: Positive: Present Musculoskeletal Exam: Normal Neurological Exam: Normal Psychological Exam: Normal Skin Exam: Normal Abd Pain Male Course/Dx - Course Course Of Treatment: Discussed viral gastro v bacterial gastro such as Campylobacter v appendicitis. Because of progressive increase in pain in the RLQ he will proceed to [facility] for rule out appendicitis. He chooses to drive himself there. - Differential Dx/Clinical Impression Differential Diagnosis/HQI/PQRI: Appendicitis, Other - colitis, bacterial enteritis. Provider Diagnosis: Abdominal pain - Physician Notification/Consults Discussed Patient Care With: Peace Red Time Discussed With Above Provider: 12:45 Discharge ED - Sign-Out/Discharge Documenting (check all that apply): Patient Departure All imaging exams completed and their final reports reviewed: No Studies - Discharge Plan Condition: Stable Disposition: TRANS [facility] Patient Education Materials: Abdominal Pain (ED) Referrals: Nilsa Jackson MD [Primary Care Provider] - Additional Instructions: Please do not eat or drink prior to your assessment in the emergency room. Proceed directly to the emergency room for evaluation. - Billing Disposition and Condition Condition: STABLE Disposition: Trans Higher Lvl of Care Fac
[2019-05-02 12:27] VITALS: BP 133/91
== END 2019-05-02 12:58 | disposition short-term general hospital (02) ==
LOC: UCCORT 12:07
DX: R10.9 Unspecified abdominal pain (principal); R53.83 Other fatigue; R19.7 Diarrhea, unspecified; F41.9 Anxiety disorder, unspecified; G43.909 Migraine, unspecified, not intractable, without status migrainosus; Z79.899 Other long term (current) drug therapy
CPT/HCPCS: 99212; G0463